=== PATIENT | male | born 1980 ===

== ENCOUNTER 2021-12-19 17:50 | Emergency (ER) | payer SELFPAY ==
[~2021-12-19] VITALS: Ht 163 cm; Wt 69.0 kg
[2021-12-19] MEDS ORDERED: SUCCINYLCHOLINE INJ 20 MG/1 ML 10 ML VIAL INJ ONE (17:59)
[2021-12-19] MEDS ORDERED: MIDAZOLAM 5 MG/5 ML (VERSED) VIAL IJ ONE (17:59)
[2021-12-19] MEDS ORDERED: ROCURONIUM 50 MG/5 ML (ZEMURON) VIAL IV ONE (17:59)
[2021-12-19] MEDS ORDERED: LACTATED RINGERS 1,000 ML IV STA (18:04)
--- NOTE | 2021-12-19 18:10 | ED General ---
General Stated Complaint: SYNCOPE Source of Information: Patient, [employer] Exam Limitations: Language Barrier History of Present Illness Date Seen by Provider: Dec 19, 2021 Time Seen by Provider: 18:00 Initial Comments PT ARRIVES VIA EMS FROM [facility]--PT ARRIVED PRIOR TO MY ARRIVAL. BEGAN FEELING BAD TODAY C/O MILD CHEST PAIN C/O SHORTNESS OF BREATH C/O MILD NAUSEA, NO VOMITING. NO DIARRHEA, NO ABDOMINAL PAIN HAD FEVER AT [facility]--TEMP IS 99 HERE. HAD LOW O2 SATS AT [facility], READING UNKNOWN. PT IS 91-94% ON 4L/NC AT THIS TIME NO HEADACHE NO COUGH NO MEDICAL PROBLEMS, NO PRIOR SURGERIES DOES NOT GO TO DR. PCP: NONE Allergies and Home Medications Allergies Coded Allergies: No Known Drug Allergies (Unverified , 12/19/21) Review of Systems Review of Systems Constitutional: see HPI, fever EENTM: no symptoms reported Respiratory: see HPI; No cough; short of breath Cardiovascular: see HPI, chest pain; No edema, No palpitations Gastrointestinal: see HPI; No abdominal pain, No diarrhea; nausea; No vomiting Genitourinary: no symptoms reported Musculoskeletal: no symptoms reported Skin: no symptoms reported Psychiatric/Neurological: No Symptoms Reported Hematologic/Lymphatic: No Symptoms Reported Immunological/Allergic: no symptoms reported Past Hacregu-Vcioho-Rbhtfh Hx Patient Social History Tobacco Use?: No Substance use?: No Alcohol Use?: No Past Medical History Surgeries: No Respiratory: No Cardiac: No Neurological: No Genitourinary: No Gastrointestinal: No Musculoskeletal: No Endocrine: No HEENT: No Cancer: No Psychosocial: No Integumentary: No Blood Disorders: No Physical Exam Vital Signs Vital Signs - First Documented 12/19/21 12/19/21 12/19/21 17:50 18:50 22:13 Temp 37.8 Pulse 125 Resp 30 B/P (MAP) 92/60 Pulse Ox 94 O2 Delivery Nasal Cannula O2 Flow Rate 4.00 FiO2 100 Capillary Refill : Height, Weight, BMI Height: '" Weight: lbs. oz. kg; BMI Method: General Appearance: WD/WN, Mild Distress, Other (MILDLY DYSPNEIC AND MILDLY LETHARGIC) HEENT: PERRL/EOMI, Normal ENT Inspection, Scleral Icterus (L), Scleral Icterus (R), Other (ORAL MUCOSA DRY) Neck: Full Range of Motion, Normal Inspection, Non Tender, Supple Respiratory: No Decreased Breath Sounds, No Rales, No Rhonci, No Wheezing; Other (MILDLY DYSPNEIC AND TACHYPNEIC) Cardiovascular: No Edema, No JVD, No Murmur, Normal Peripheral Pulses, Tachycardia Gastrointestinal: Non Tender, Soft Back: Normal Inspection, No CVA Tenderness, No Vertebral Tenderness Extremity: Normal Capillary Refill, Normal Inspection, Normal Range of Motion, Non Tender, No Calf Tenderness, No Pedal Edema Neurologic/Psychiatric: Alert, Oriented x3, No Motor/Sensory Deficits, belt picker II- XII Norm as Tested Skin: Normal Color (PT IS ), Warm/Dry; No Rash Focused Exam Sepsis Stage: Septic Shock Possible Source: Pulmonary Lactate Level 12/19/21 18:18: Lactic Acid Level 2.37*H Time of Focused Exam: 19:30 Respiratory: Normal Breath Sounds, Accessory Muscle Use; No Crackles, No Rales; Respiratory Distress (MILD); No Rhonci, No Stridor, No Wheezing; Other (MILD DYSPNEA AND TACHYPNEA) Cardiovascular: No Edema, No Gallop, No JVD, No Murmur, Normal Peripheral Pulses, Tachycardia Capillary Refill: Less Than 3 Seconds Skin: normal color (), warm/dry Lactic Acid Level Laboratory Tests Test 12/19/21 18:18 Lactic Acid Level 2.37 MMOL/L (0.50-2.00) *H Within 3hrs of presentation: Admin fluids, Admin ABX, Blood cultures prior to ABX's, Focus exam, Lactate level Procedures/Interventions Lumen: triple Central Line Procedure: betadine prep, sterile drapes applied, sterile dressing applied Position: femoral (L) Anesthesia: Lidocaine Complications: none Post Position: sutured, good blood return PERFORMED BY JERICHO GOVEA Intubation Method: orotracheal Medications: Propofol, Rocuronium, Succinylcholine, Versed Positive End Tide CO2: Yes Breath Sounds after Intubation: bilateral-equal Intubation Complications: no complications Post Intubation Xray: Yes PERFORMED BY JERICHO GOVEA. Progress/Results/Core Measures Suspected Sepsis SIRS Temperature: Pulse: Respiratory Rate: Laboratory Tests 12/19/21 18:18: White Blood Count 7.2 Blood Pressure / Mean: 12/19/21 18:18: Lactic Acid Level 2.37*H Laboratory Tests 12/19/21 18:18: Creatinine 1.74H, INR Comment 1.1, Platelet Count 37*L, Total Bilirubin 4.7H Results/Orders Lab Results Laboratory Tests Test 12/19/21 18:14 12/19/21 18:18 12/19/21 18:27 12/19/21 22:18 Range/Units Influenza Type A (RT-PCR) Not Detected Not Detecte Influenza Type B (RT-PCR) Not Detected Not Detecte SARS-CoV-2 RNA (RT-PCR) Not Detected Not Detecte White Blood Count 7.2 4.3-11.0 10^3/uL Red Blood Count 4.96 4.30-5.52 10^6/uL Hemoglobin 14.1 13.3-17.7 g/dL Hematocrit 41 40-54 % Mean Corpuscular Volume 82 80-99 fL Mean Corpuscular Hemoglobin 28 25-34 pg Mean Corpuscular Hemoglobin Concent 35 32-36 g/dL Red Cell Distribution Width 13.0 10.0-14.5 % Platelet Count 37 *L 130-400 10^3/uL Mean Platelet Volume 11.1 9.0-12.2 fL Immature Granulocyte % (Auto) 8 % Neutrophils (%) (Auto) 87 H 42-75 % Lymphocytes (%) (Auto) 3 L 12-44 % Monocytes (%) (Auto) 2 0-12 % Eosinophils (%) (Auto) 0 0-10 % Basophils (%) (Auto) 1 0-10 % Neutrophils # (Auto) 6.3 1.8-7.8 10^3/uL Lymphocytes # (Auto) 0.2 L 1.0-4.0 10^3/uL Monocytes # (Auto) 0.2 0.0-1.0 10^3/uL Eosinophils # (Auto) 0.0 0.0-0.3 10^3/uL Basophils # (Auto) 0.0 0.0-0.1 10^3/uL Immature Granulocyte # (Auto) 0.5 H 0.0-0.1 10^3/uL Neutrophils % (Manual) 64 % Lymphocytes % (Manual) 4 % Monocytes % (Manual) 4 % Eosinophils % (Manual) 2 % Metamyelocytes % 2 % Band Neutrophils 19 % Atypical Lymphocytes 5 % Toxic Granulation 1+ Percent Immature Platelet Fraction 10.0 H 0.0-7.6 % Pavilion Cells SLIGHT Erythrocyte Sedimentation Rate 36 H 0-15 MM/HR Prothrombin Time 14.4 12.2-14.7 SEC INR Comment 1.1 0.8-1.4 Activated Partial Thromboplast Time 32 24-35 SEC D-Dimer 7.10 H 0.00-0.49 UG/ML Sodium Level 134 L 135-145 MMOL/L Potassium Level 3.1 L 3.6-5.0 MMOL/L Chloride Level 99 98-107 MMOL/L Carbon Dioxide Level 24 21-32 MMOL/L Anion Gap 11 5-14 MMOL/L Blood Urea Nitrogen 37 H 7-18 MG/DL Creatinine 1.74 H 0.60-1.30 MG/DL Estimat Glomerular Filtration Rate 49 BUN/Creatinine Ratio 21 Glucose Level 111 H 70-105 MG/DL Lactic Acid Level 2.37 *H 0.50-2.00 MMOL/L Calcium Level 8.1 L 8.5-10.1 MG/DL Corrected Calcium 9.1 8.5-10.1 MG/DL Magnesium Level 2.2 1.6-2.4 MG/DL Total Bilirubin 4.7 H 0.1-1.0 MG/DL Aspartate Amino Transf (AST/SGOT) 163 H 5-34 U/L Alanine Aminotransferase (ALT/SGPT) 216 H 0-55 U/L Alkaline Phosphatase 403 H 40-136 U/L Total Creatine Kinase 10 L 30-200 U/L Creatine Kinase MB 0.2 <6.6 NG/ML Myoglobin 58.0 10.0-92.0 NG/ML Troponin I < 0.028 <0.028 NG/ML C-Reactive Protein High Sensitivity 35.94 H 0.00-0.50 MG/DL B-Type Natriuretic Peptide 129.2 H <100.0 PG/ML Total Protein 6.0 L 6.4-8.2 GM/DL Albumin 2.7 L 3.2-4.5 GM/DL Amylase Level 15 L 25-125 U/L Lipase 12 8-78 U/L Procalcitonin 5.93 H <0.10 NG/ML Free Thyroxine 0.98 0.70-1.48 NG/DL TSH [place] Testing 0.30 L 0.35-4.94 UIU/ML Serum Alcohol < 10 <10 MG/DL Urine Color ORANGE Urine Clarity CLOUDY Urine pH 6.0 5-9 Urine Specific Wagner 1.015 L 1.016-1.022 Urine Protein 2+ H NEGATIVE Urine Glucose (UA) TRACE H NEGATIVE Urine Ketones TRACE H NEGATIVE Urine Nitrite NEGATIVE NEGATIVE Urine Bilirubin 2+ H NEGATIVE Urine Urobilinogen >=8.0 < = 1.0 MG/DL Urine Leukocyte Esterase TRACE H NEGATIVE Urine RBC (Auto) 2+ H NEGATIVE Urine RBC 10-25 H /HPF Urine WBC 5-10 H /HPF Urine Squamous Epithelial Cells 5-10 /HPF Urine Crystals NONE /LPF Urine Bacteria LARGE H /HPF Urine Casts PRESENT /LPF Urine Granular Casts 5-10 H /LPF Urine Waxy Casts 5-10 H /LPF Urine Mucus SMALL H /LPF Urine Culture Indicated CULTURE PENDING Urine Opiates Screen NEGATIVE NEGATIVE Urine Oxycodone Screen NEGATIVE NEGATIVE Urine Methadone Screen NEGATIVE NEGATIVE Urine Propoxyphene Screen NEGATIVE NEGATIVE Urine Barbiturates Screen NEGATIVE NEGATIVE Ur Tricyclic Antidepressants Screen NEGATIVE NEGATIVE Urine Phencyclidine Screen NEGATIVE NEGATIVE Urine Amphetamines Screen NEGATIVE NEGATIVE Urine Methamphetamines Screen NEGATIVE NEGATIVE Urine Benzodiazepines Screen NEGATIVE NEGATIVE Urine Cocaine Screen NEGATIVE NEGATIVE Urine Cannabinoids Screen NEGATIVE NEGATIVE Bedside Blood Gas pH (LAB) 7.235 *L 7.310-7.410 Bedside Blood Gas pCO2 (LAB) 51.6 H 41.0-51.0 mmHg Bedside Blood Gas pO2 (LAB) 87 80-105 mmHg Bedside Blood Gas HCO3 (LAB) 21.9 L 23.0-28.0 mmol/L POC Blood Gas Total CO2 Calc 23 L 24-29 mmol/L Bedside Bl Gas O2 Saturation (Calc) 94 L 95-98 % Bedside Arterial Blood Base Excess -6 L -2-3 mmol/L My Orders Orders - BALJINDER LIZAMA DO Ed Iv/Invasive Line Start (12/19/21 18:04) Ekg Tracing (12/19/21 18:04) O2 (12/19/21 18:04) Monitor-Rhythm Ecg Trace Only (12/19/21 18:04) Alcohol (12/19/21 18:04) Bnp Isabela (12/19/21 18:04) Cbc With Automated Diff (12/19/21 18:04) Comprehensive Metabolic Panel (12/19/21 18:04) Creatine Kinase (12/19/21 18:04) Creatine Kinase Mb (12/19/21 18:04) Hs C Reactive Protein (12/19/21 18:04) Fibrin Degradation Products (12/19/21 18:04) Drug Screen Stat (Urine) (12/19/21 18:04) Lactic Acid Analyzer (12/19/21 18:04) Magnesium (12/19/21 18:04) Protime With Inr (12/19/21 18:04) Partial Thromboplastin Time (12/19/21 18:04) Thyroid Analyzer (12/19/21 18:04) Erythrocyte Sedimentation Rate (12/19/21 18:04) Myoglobin Serum (12/19/21 18:04) Troponin I Isabela (12/19/21 18:04) Ed Iv/Invasive Line Start (12/19/21 18:04) Procalcitonin (Pct) (12/19/21 18:04) Chest 1 View, Ap/Pa Only (12/19/21 18:04) Covid 19 Inhouse Test (12/19/21 18:04) Ed Iv/Invasive Line Start (12/19/21 18:04) Influenza A And B By Pcr (12/19/21 18:04) Isolation Central Supply Req (12/19/21 18:04) Ondansetron Injection (Zofran Injectio (12/19/21 18:15) Lactated Ringers (Lr 1000 Ml Iv Solution (12/19/21 18:04) Aspirin Chewable Tablet (Baby Aspirin Ch (12/19/21 18:15) Blood Culture (12/19/21 18:14) Sputum Culture (12/19/21 18:14) Urinalysis (12/19/21 18:14) Urine Culture (12/19/21 18:14) Acetaminophen Tablet (Tylenol Tablet) (12/19/21 18:15) Ed Iv/Invasive Line Start (12/19/21 18:14) Vital Signs Adult Sepsis Patie Q15M (12/19/21 18:14) O2 (12/19/21 18:14) Remove Rings In Anticipation O (12/19/21 18:14) Manual Differential (12/19/21 18:18) Ed Iv/Invasive Line Start (12/19/21 18:48) Lactated Ringers (Lr 1000 Ml Iv Solution (12/19/21 19:00) Ns Iv 1000 Ml (Sodium Chloride 0.9%) (12/19/21 19:00) Amylase (12/19/21 18:49) Hepatitis Panel Acute (12/19/21 18:49) Hiv 1&2 Antibody (12/19/21 18:49) Lipase (12/19/21 18:49) Monotest (12/19/21 18:49) Ct [place] Chest/Noang Abd-Pelv W (12/19/21 18:50) Iohexol Injection (Omnipaque 350 Mg/Ml 1 (12/19/21 19:00) Received Contrast (Hold Metformin- Contr (12/19/21 19:00) Ns (Ivpb) (Sodium Chloride 0.9% Ivpb Bag (12/19/21 19:00) Iohexol Injection (Omnipaque 350 Mg/Ml 1 (12/19/21 19:00) Received Contrast (Hold Metformin- Contr (12/19/21 19:00) Ns (Ivpb) (Sodium Chloride 0.9% Ivpb Bag (12/19/21 19:00) Free T4 (Free Thyroxine) (12/19/21 18:18) Arterial Blood Gas (12/19/21 19:19) Ceftriaxone 1 Gm Pre-Mix (Rocephin 1 Gm (12/19/21 19:45) Azithromycin Injection (Zithromax Inject (12/19/21 19:45) Methylprednisolone Sod Succ (Solu-Medrol (12/19/21 19:38) Ed Iv/Invasive Line Start (12/19/21 20:11) Lactated Ringers (Lr 1000 Ml Iv Solution (12/19/21 20:15) Metronidazole 500mg/100ml Ivpb (Flagyl 5 (12/19/21 20:45) Ed Iv/Invasive Line Start (12/19/21 21:09) Lactated Ringers (Lr 1000 Ml Iv Solution (12/19/21 21:15) Ns Iv 1000 Ml (Sodium Chloride 0.9%) (12/19/21 21:15) Chest 1 View, Ap/Pa Only (12/19/21 21:43) Propofol Drip (Icu) (Diprivan Drip (Icu) (12/19/21 21:41) Furosemide Injection (Lasix Injection) (12/19/21 22:15) Medications Given in ED Current Medications Medications Dose Ordered Sig/Nathalie Route Start Time Stop Time Status Last Admin Dose Admin Acetaminophen 1,000 mg ONCE PRN PO 12/19/21 18:15 12/19/21 18:48 DC 12/19/21 18:47 1,000 MG Aspirin 324 mg ONCE ONCE PO 12/19/21 18:15 12/19/21 18:16 DC 12/19/21 18:47 324 MG Azithromycin 500 mg/Sodium Chloride 255 ml @ 250 mls/hr ONCE ONCE IV 12/19/21 19:45 12/19/21 20:46 DC 12/19/21 19:59 250 MLS/HR Ceftriaxone Sodium/Dextrose 50 ml @ 100 mls/hr ONCE ONCE IV 12/19/21 19:45 12/19/21 20:14 DC 12/19/21 19:59 100 MLS/HR Furosemide 40 mg ONCE ONCE IVP 12/19/21 22:15 12/19/21 22:16 DC 12/19/21 22:24 40 MG Iohexol 100 ml ONCE ONCE IV 12/19/21 19:00 12/19/21 19:01 DC 12/19/21 19:48 63 ML Lactated Ringer's 1,000 ml @ 0 mls/hr Q0M ONCE IV 12/19/21 19:00 12/19/21 19:01 DC 12/19/21 19:19 0 MLS/HR Lactated Ringer's 1,000 ml @ 0 mls/hr Q0M ONCE IV 12/19/21 20:15 12/19/21 20:16 DC 12/19/21 20:18 0 MLS/HR Lactated Ringer's 1,000 ml @ 0 mls/hr Q0M ONCE IV 12/19/21 21:15 12/19/21 21:16 DC 12/19/21 21:15 0 MLS/HR Metronidazole 100 ml @ 100 mls/hr ONCE ONCE IV 12/19/21 20:45 12/19/21 21:44 DC 12/19/21 20:42 100 MLS/HR Ondansetron HCl 4 mg ONCE ONCE IVP 12/19/21 18:15 12/19/21 18:16 DC 12/19/21 18:47 4 MG Propofol 100 ml @ ud STK-MED ONCE IV 12/19/21 21:41 12/19/21 21:44 DC 12/19/21 21:57 4.1 MLS/HR Sodium Chloride 100 ml ONCE ONCE IV 12/19/21 19:00 12/19/21 19:01 DC 12/19/21 19:48 80 ML Vital Signs/I&O 12/19/21 12/19/21 12/19/21 12/19/21 17:50 17:50 18:50 21:00 Temp 37.8 36.9 Pulse 125 121 Resp 30 28 26 B/P (MAP) 92/60 85/48 Pulse Ox 94 94 93 90 O2 Delivery Nasal Cannula Nasal Cannula OxyMask O2 Flow Rate 4.00 4.00 10.00 12/19/21 12/19/21 12/19/21 21:57 22:13 22:38 Temp 36.8 Pulse 131 134 137 Resp 23 B/P (MAP) 171/105 168/116 Pulse Ox 95 97 O2 Delivery Mechanical Ventilator O2 Flow Rate 100.00 FiO2 100 Capillary Refill : Progress Note : Progress Note PPE WORN COVID AND FLU TESTING DONE SEPSIS PROTOCOL INITIATED CHEST PAIN PROTOCOL INITIATED GIVEN IV FLUIDS AND BP UP TO >100 SYSTOLIC O2 UP TO 94% ON OXIMASK AT 10L. O2 SAT 82% ON ROOM AIR GIVEN TYLENOL FOR FEVER PT BEGAN TO HAVE DROPS IN O2 SATS DOWN TO 89% ON OXIMASK, AND BP BEGAN TO DROP INTO 80'S SYSTOLIC PT WAS INTUBATED AT THAT POINT AND CENTRAL LINE PLACE IN LEFT FEMORAL, BY JERICHO GOVEA. NO COMPLICATIONS BP UP AFTER INTUBATION HR REMAINED IN 120'S THROUGHOUT ER STAY REPEAT CXR NOW SHOWS LARGE BILATERAL INFILTRATES/PULMONARY EDEMA--GIVEN LASIX 40 MG ET TUBE ADJUSTED AFTER CXR RESULTS OBTAINED. PT HAD TOTAL OF 4600 ML FLUIDS IN, AND 3000 ML URINARY OUTPUT. ECG Initial ECG Impression Date: Dec 19, 2021 Initial ECG Impression Time: 18:13 Initial ECG Rate: 124 Initial ECG Rhythm: S.Tach Initial ECG Comparisson: No Previous ECG Available Diagnostic Imaging Comments CXR--PER RADIOLOGIST REPORT AT 1840 FINDINGS: Low lung volumes. Normal heart size and central pulmonary vascularity. No focal pulmonary opacity. No pleural effusion or pneumothorax. No acute osseous findings. IMPRESSION: Low lung volumes. Chest otherwise negative. CT ANGIOGRAM CHEST/ABDOMEN-PELVIS-- COMPARISON: Chest radiograph 12/19/2021. FINDINGS: Examination is limited by respiratory motion. No large or central pulmonary artery filling defects are seen. Normal caliber aorta. Conventional aortic arch. The great arch vessels, celiac axis, SMA, bilateral renal, SMA and iliac arteries are widely patent without evidence of aneurysm or dissection. Perihilar groundglass opacities in both lungs. Linear atelectasis in the right lung base. No pleural effusion or pneumothorax. Normal heart size. No pericardial effusion. No mediastinal, hilar or axillary lymphadenopathy. Large indeterminate mass in the right hepatic lobe measuring 8.5 x 6.5 cm. No other liver lesions are identified on this arterial phase exam. The gallbladder, pancreas, spleen, adrenals, kidneys, collecting systems and bladder are negative. The appendix is not well seen and may be surgically absent. No suspicious inflammatory findings in the region of the cecum. No free intraperitoneal air or fluid. No lymphadenopathy. No evidence of bowel obstruction. No acute osseous finding. IMPRESSION: 1. Examination is limited by respiratory motion. No large or central pulmonary emboli. The aorta and its major branches in the chest, abdomen and pelvis are negative. 2. Indeterminate large mass in the right hepatic lobe measures up to 8.5 cm. Most likely differential considerations would be a neoplastic process versus abscess. 3. Mild perihilar groundglass opacities could be due to an infectious process versus pulmonary edema. CXR POST INTUBATION AND NG TUBE--PER RADIOLOGIST REPORT AT 2223 FINDINGS: New ETT tip at the galen. NG tube tip in the stomach with the side-port in the distal esophagus. Interval development of marked perihilar airspace opacities. No pleural effusion or pneumothorax. Stable heart size. No acute osseous finding. IMPRESSION: 1. New ETT tip at the level of the galen. This could be withdrawn 4 cm. 2. NG tube tip in the stomach with the side-port in the distal esophagus. 3. Interval development of dense perihilar airspace opacities. Given the rapid development, pulmonary edema suspected. Reviewed: Reviewed by Me Critical Care Note Critical Care Total Time (minutes) 90 Departure Communication (Admissions) 1946--SPOKE WITH DR. SAMSON, HOSPITALIST, ADVISES TRANSFER TO HIGHER LEVEL OF CARE 2002--CONTACTED [facility], THEY WILL CALL BACK. 2104--CALLED [facility]. THEY WILL CALL BACK 2127--[facility] CALLED BACK, DR. CUEVAS HAS ACCEPTED PT FOR ADMIT TO ICU. THEY WILL CALL BACK WITH BED ASSIGNMENT. [facility] IS BEING CONTACTED FOR TRANSPORT 2199--[facility] CONTACTED. NONE ARE FLYING AT THIS TIME DUE TO WEATHER. LOCAL EMS CONTACTED FOR TRANSPORT. 2234--[facility] HERE FOR TRANSPORT Impression Primary Impression: Septic shock Additional Impressions: ACUTE REPSIRATORY FAILURE Pneumonia LIVER MASS VS ABSCESS UTI (urinary tract infection) Elevated liver enzymes Thrombocytopenia Renal insufficiency Electrolyte imbalance Dehydration Pulmonary edema Disposition: 02 XFER SHT-TRM HOSP Condition: Stable Transfer Transfer Reason: Exceeds level of care Transfer Facility: [facility] Method of Transfer: EMS BALJINDER LIZAMA DO Dec 19, 2021 18:10
[2021-12-19] MEDS ORDERED: ACETAMINOPHEN 500 MG TAB (TYLENOL) PO PRN (18:15)
[2021-12-19] MEDS ORDERED: ONDANSETRON 4 MG/2 ML (SDV) Z0FRAN IVP ONE (18:15)
[2021-12-19] MEDS ORDERED: ASPIRIN 81 MG CHEW (CHILDREN'S ASA) PO ONE (18:15)
[2021-12-19 18:26] LABS: HEMOGLOBIN 14.1 g/dL (13.3-17.7)
[2021-12-19 18:28] LABS: BASOPHILS % (AUTO) 1 % (0-10); EOSINOPHILS % (AUTO) 0 % (0-10); HEMATOCRIT 41 % (40-54); LYMPHOCYTES # (AUTO) 0.2 10^3/uL (1.0-4.0); LYMPHOCYTES % (AUTO) 3 % (12-44); MEAN CORPUSCULAR HEMOGLOBIN 28 pg (25-34); MEAN CORPUSCULAR HGB CONC 35 g/dL (32-36); MEAN CORPUSCULAR VOLUME 82 fL (80-99); MEAN PLATELET VOLUME 11.1 fL (9.0-12.2); MONOCYTES # (AUTO) 0.2 10^3/uL (0.0-1.0); MONOCYTES % (AUTO) 2 % (0-12); NEUTROPHILS # (AUTO) 6.3 10^3/uL (1.8-7.8); NEUTROPHILS % (AUTO) 87 % (42-75); WHITE BLOOD COUNT 7.2 10^3/uL (4.3-11.0)
[2021-12-19 18:33] LABS: CLARITY,URINE CLOUDY; COLOR,URINE ORANGE; GLUCOSE, URINE (UA) TRACE (NEGATIVE); KETONES,URINE TRACE (NEGATIVE); LEUKOCYTE ESTERASE ,URINE TRACE (NEGATIVE); NITRITE,URINE NEGATIVE (NEGATIVE); PROTEIN,URINE 2+ (NEGATIVE)
[2021-12-19 18:35] LABS: PLATELET COUNT 37 10^3/uL (130-400)
--- NOTE | 2021-12-19 18:35 | Diagnostic Imaging Report ---
EXAM: CHEST 1 VIEW, AP/PA ONLY INDICATION: Chest pain. Dyspnea. COMPARISON: None. FINDINGS: Low lung volumes. Normal heart size and central pulmonary vascularity. No focal pulmonary opacity. No pleural effusion or pneumothorax. No acute osseous findings. IMPRESSION: Low lung volumes. Chest otherwise negative. Dictated by: Dictated on workstation # [id number]
[2021-12-19 18:38] LABS: ALBUMIN 2.7 GM/DL (3.2-4.5); CHLORIDE 99 MMOL/L (98-107); POTASSIUM 3.1 MMOL/L (3.6-5.0); SODIUM 134 MMOL/L (135-145)
[2021-12-19 18:39] LABS: CALCIUM 8.1 MG/DL (8.5-10.1)
[2021-12-19 18:40] LABS: GLUCOSE 111 MG/DL (70-105)
[2021-12-19 18:41] LABS: CARBON DIOXIDE 24 MMOL/L (21-32)
[2021-12-19 18:42] LABS: BILIRUBIN,TOTAL 4.7 MG/DL (0.1-1.0)
[2021-12-19 18:44] LABS: ALKALINE PHOSPHATASE 403 U/L (40-136); CREATININE SERUM 1.74 MG/DL (0.60-1.30); GFR ESTIMATED 49
[2021-12-19 18:45] LABS: BUN/CREATININE RATIO 21
[2021-12-19 18:47] LABS: ALANINE AMINOTRANSFERASE 216 U/L (0-55); MAGNESIUM 2.2 MG/DL (1.6-2.4)
[2021-12-19 18:48] LABS: BACTERIA,URINE LARGE /HPF; BILIRUBIN,URINE 2+ (NEGATIVE)
[2021-12-19 18:48] LABS: CREATINE KINASE 10 U/L (30-200)
[2021-12-19 18:49] LABS: FIBRIN DEGRADATION PRODUCTS 7.1 UG/ML (0.00-0.49); INR 1.1 (0.8-1.4); PROTHROMBIN TIME PATIENT 14.4 SEC (12.2-14.7)
[2021-12-19 18:52] LABS: AMPHETAMINE SCREEN, URINE NEGATIVE (NEGATIVE); BARBITURATE SCREEN URINE NEGATIVE (NEGATIVE); BENZODIAZEPINES SCREEN URINE NEGATIVE (NEGATIVE); CANNABINOID SCREEN, URINE NEGATIVE (NEGATIVE); COCAINE SCREEN URINE NEGATIVE (NEGATIVE); METHADONE STAT NEGATIVE (NEGATIVE); OPIATE SCREEN URINE NEGATIVE (NEGATIVE); OXYCODONE STAT NEGATIVE (NEGATIVE); PROPOXYPHENE STAT NEGATIVE (NEGATIVE); TRICYCLIC ANTIDEPRESSANTS SCRE NEGATIVE (NEGATIVE)
[2021-12-19 18:53] LABS: ERYTHROCYTE SEDIMENTATION RATE 36 MM/HR (0-15)
[2021-12-19 18:55] LABS: CREATINE KINASE MB 0.2 NG/ML (<6.6)
[2021-12-19] MEDS ORDERED: NS IV 1000 ML 1,000 ML IV SCH ×2 (19:00→21:15)
[2021-12-19] MEDS ORDERED: IOHEXOL 350 MG/ML 100 ML (OMNIPAQUE 350) VIAL IV ONE ×2 (19:00)
[2021-12-19] MEDS ORDERED: HOLD METFORMIN - RECEIVED CONTRAST 20 ML VIAL IV SCH ×2 (19:00)
[2021-12-19] MEDS ORDERED: NS 100 ML (IVPB) BAG IV ONE ×2 (19:00)
[2021-12-19] MEDS ORDERED: LACTATED RINGERS 1,000 ML IV ONE ×3 (19:00→21:15)
[2021-12-19 19:10] LABS: ATYPICAL LYMPHOCYTES 5 %; BAND NEUTROPHILS 19 %; BURR CELLS SLIGHT; EOSINOPHILS % (MANUAL) 2 %; LYMPHOCYTES % (MANUAL) 4 %; METAMYELOCYTES % 2 %; MONOCYTES % (MANUAL) 4 %; NEUTROPHILS % (MANUAL) 64 %; TOXIC GRANULATION/VACUOLAZATIO 1+
[2021-12-19 19:36] LABS: AMYLASE 15 U/L (25-125); LIPASE 12 U/L (8-78)
[2021-12-19] MEDS ORDERED: methylPREDNISolone 125 MG (Solu-MEDROL) VIAL IV STA (19:38)
--- NOTE | 2021-12-19 19:43 | Diagnostic Imaging Report ---
INDICATION: CTA chest, abdomen and pelvis. Thin axial sections through the chest, abdomen and pelvis are obtained following intravenous contrast bolus. Multiplanar MIP images were reconstructed and reviewed. All CT scans use one or more of the following dose optimizing techniques: automated exposure control, MA and/or KvP adjustment based on patient size and exam type or iterative reconstruction. INDICATION: Illness x 4 days. Fatigue. Cough. Chest pain. Elevated bilirubin. Fever. COMPARISON: Chest radiograph 12/19/2021. FINDINGS: Examination is limited by respiratory motion. No large or central pulmonary artery filling defects are seen. Normal caliber aorta. Conventional aortic arch. The great arch vessels, celiac axis, SMA, bilateral renal, SMA and iliac arteries are widely patent without evidence of aneurysm or dissection. Perihilar groundglass opacities in both lungs. Linear atelectasis in the right lung base. No pleural effusion or pneumothorax. Normal heart size. No pericardial effusion. No mediastinal, hilar or axillary lymphadenopathy. Large indeterminate mass in the right hepatic lobe measuring 8.5 x 6.5 cm. No other liver lesions are identified on this arterial phase exam. The gallbladder, pancreas, spleen, adrenals, kidneys, collecting systems and bladder are negative. The appendix is not well seen and may be surgically absent. No suspicious inflammatory findings in the region of the cecum. No free intraperitoneal air or fluid. No lymphadenopathy. No evidence of bowel obstruction. No acute osseous finding. IMPRESSION: 1. Examination is limited by respiratory motion. No large or central pulmonary emboli. The aorta and its major branches in the chest, abdomen and pelvis are negative. 2. Indeterminate large mass in the right hepatic lobe measures up to 8.5 cm. Most likely differential considerations would be a neoplastic process versus abscess. 3. Mild perihilar groundglass opacities could be due to an infectious process versus pulmonary edema. Dictated by: Dictated on workstation # [id number]
[2021-12-19] MEDS ORDERED: AZITHROMYCIN INJECTION 500 MG in NS (IVPB) 250 ML IV ONE (19:45)
[2021-12-19] MEDS ORDERED: cefTRIAXone 1 GM PRE-MIX 50 ML IV ONE (19:45)
[2021-12-19 19:59] LABS: FREE T4 (FREE THYROXINE) 0.98 NG/DL (0.70-1.48)
[2021-12-19] MEDS ORDERED: metroNIDAZOLE 500MG/100ML IVPB 100 ML IV ONE (20:45)
[2021-12-19] MEDS ORDERED: PROPOFOL DRIP (ICU) 100 ML IV ONE (21:41)
--- NOTE | 2021-12-19 22:06 | Diagnostic Imaging Report ---
EXAM: Chest 1 view, AP/PA only INDICATION: Line placement. COMPARISON: Chest radiograph 12/19/2021 at 6:24 PM. FINDINGS: New ETT tip at the galen. NG tube tip in the stomach with the side-port in the distal esophagus. Interval development of marked perihilar airspace opacities. No pleural effusion or pneumothorax. Stable heart size. No acute osseous finding. IMPRESSION: 1. New ETT tip at the level of the galen. This could be withdrawn 4 cm. 2. NG tube tip in the stomach with the side-port in the distal esophagus. 3. Interval development of dense perihilar airspace opacities. Given the rapid development, pulmonary edema suspected. Dictated by: Dictated on workstation # [id number]
[2021-12-19 22:13] VITALS: BP 166/107
[2021-12-19] MEDS ORDERED: FUROSEMIDE 40 MG/4 ML INJ (LASIX) IVP ONE (22:15)
[2021-12-19 22:38] VITALS: BP 168/116
[2021-12-20 21:52] LABS: HEPATITIS C ANTIBODY C Non-Reactive (Non-Reactive)
== END 2021-12-19 22:45 | disposition short-term general hospital (02) ==
LOC: ER 17:58
DX: A41.9 Sepsis, unspecified organism (principal); R65.21 Severe sepsis with septic shock; J18.9 Pneumonia, unspecified organism; J96.00 Acute respiratory failure, unspecified whether with hypoxia or hypercapnia; J81.1 Chronic pulmonary edema; D69.6 Thrombocytopenia, unspecified; N28.9 Disorder of kidney and ureter, unspecified; N39.0 Urinary tract infection, site not specified; E87.8 Other disorders of electrolyte and fluid balance, not elsewhere classified; E86.0 Dehydration; R94.5 Abnormal results of liver function studies; Z20.822 Contact with and (suspected) exposure to COVID-19
CPT/HCPCS: 31500; 51702; 71045; 71275; 74177; 80053; 80074; 80306; 81000; 82150; 82550; 82553; 82805; 83605; 83690; 83735; 83874; 83880; 84145; 84439; 84443; 84484; 85007; 85027; 85379; 85610; 85652; 85730; 86141; 86703; 87040; 87070; 87088; 87205; 87636; 93041; 94002; 94799; 99292; G0480; 36415; 80320; 93005; 99291

== ENCOUNTER → 2022-02-22 | Outpatient (CLI) | payer OTHER ==
--- NOTE | 2022-02-22 10:14 | Diagnostic Imaging Report ---
PROCEDURE: CT abdomen and pelvis without contrast. TECHNIQUE: Multiple contiguous axial images were obtained through the abdomen and pelvis without the use of intravenous contrast. Auto Exposure Controls were utilized during the CT exam to meet ALARA standards for radiation dose reduction. INDICATION: Liver abscess. Comparison is made with CT study from 12/19/2021. FINDINGS: The lung bases are clear. Large low-density mass noted previously in the dome of the right lobe of the liver has significantly improved. There is some residual low density at the dome measuring 5.9 x 3.1 cm. Cephalocaudal dimensions are significantly decreased, measuring 1.4 cm. This compares with 8.5 x 6.5 x 6.2 cm on prior exam. No biliary ductal dilatation is seen. Gallbladder is unremarkable. Pancreas and spleen are unremarkable. No adrenal mass is detected. Kidneys are without calculi or hydronephrosis. Aorta is nonaneurysmal. Small and large bowel loops are normal caliber. There is no ascites. Prostate and bladder are unremarkable. IMPRESSION: Significant reduction in size of right liver abscess when compared with prior study from 12/19/2021. No new abnormality is detected. Dictated by: Dictated on workstation # [id number]
== END ==
LOC: RAD 08:47
PROVIDERS: ATTEND Specialist
DX: K75.0 Abscess of liver (principal)
CPT/HCPCS: 74176